=== PATIENT | female | born 1990 | race Caucasian/White ===

== ENCOUNTER 2021-06-22 15:49 | Emergency (ER) | payer BC, SELFPAY ==
[2021-06-22 15:50] VITALS: BP 122/66; PULSE 87; RESP 18; TEMP 36.7; O2SAT 99; BMI 28.1
--- NOTE | 2021-06-22 17:15 | RAD_ITS ---
STUDY: X-RAY - RIGHT FOOT CLINICAL: Female, 31 years old. pain TECHNIQUE: 3 view(s) of the foot. COMPARISON: None. FINDINGS: Normal talus, calcaneus, and tarsal bones. Normal visualized subtalar, talonavicular, calcaneocuboid, tarsal and tarsometatarsal articulations. Normal metatarsi. Normal metatarsophalangeal joint of the great toe. Normal tibial and fibular sesamoid bones. Normal interphalangeal joint of the great toe. Normal phalanges of the great toe. Normal second through fifth metatarsophalangeal joints. Normal interphalangeal joints and phalanges of the lesser toes. The soft tissue structures are unremarkable. RAD/Foot min 3 Views IMPRESSION: Normal x-ray examination of the foot. Electronically Signed: Dylan Morton MD at 17:38 EST Tel , Service support ,
--- NOTE | 2021-06-22 18:17 | ED.VIS.LOWEX ---
HPI History of Present Illness HPI Narrative: Patient presents with right foot injury that occurred yesterday. Patient states she was playing soccer. Patient states she was running and made a cut when she felt something crunch in her right foot. Patient states it is over the lateral aspect of the right foot. Patient states that later in the game she kicked the ball but is unsure if another player kicked the ball at the same time or if a accidentally kicked each other his feet. Patient states her pain is worse with weightbearing. Patient states it is a constant dull ache but is sharp with weightbearing. Patient denies any paresthesias or weakness. Patient denies any other injuries. Chief Complaint: Lower Extremity Injury Informant: patient Onset/Context/Timing Onset: Yesterday Context: Sudden Onset Timing: Continuous Quality of Pain: Sharp and Dull Location: Right foot Worsened by: Weightbearing Relieved by: Rest Associated Symptoms Associated Symptoms: Positive for Parasthesia; Negative for Weakness and Loss of Funtion PFSH PFSH Medical History no medical history Home Medications meloxicam 15 mg PO DAILY #10 tab 06/22/21 [Rx Last Taken Unknown] Allergy/AdvReac Type Severity Reaction Status Date / Time No Known Allergies Allergy Verified 06/22/21 16:47 Surgical History (Updated 06/22/21 @ 18:[address] Kali Harvey DO) H/O section History of arthroscopy of right shoulder Hx of laparoscopy Social History Smoking Status: Never smoker ROS ROS ED Constitutional Constitutional ED: Denies chills or fever(s) Eyes Eyes: Denies blurry vision or change in vision ENT ENT ED: Denies rhinorrhea or sore throat Cardiovascular Cardiovascular: Denies chest pain or palpitations Respiratory/Chest Respiratory/Chest: Denies cough or dyspnea Gastrointestinal Gastrointestinal: Denies nausea or vomiting Genitourinary Genitourinary ED: Denies dysuria or hematuria Musculoskeletal Musculoskeletal: Denies back pain or neck pain Integumentary Denies abscess or rash Neurologic Neurologic: Denies headache(s) or weakness Allergic/Immunologic Allergic/Immunologic ED: Denies mouth swelling or urticaria EXAM Physical Exam Const Vital Signs: 06/22/21 15:50 Temperature 98.1 F Temperature Source Temporal Pulse Rate 87 Respiratory Rate 18 Blood Pressure 122/66 H Blood Pressure Mean 84 Pulse Ox 99 Oxygen Delivery Method Room Air Positive well nourished and well developed General Appearance ED: well developed HEENT Reports moist mucous membranes Neck full ROM and supple Extremity Extremity Narrative: There is tenderness over the right fifth metatarsal. There is also tenderness over the first tarsometatarsal joint. There is no edema or ecchymosis. There is no bony crepitance or step-off. There is no obvious deformity noted. There is no tenderness over the medial or lateral malleoli. Pedal pulses are equal bilaterally. Sensation was intact to light touch in all digits. Capillary refill was less than 2 seconds in all digits. There is no calf tenderness. There is no proximal fibula tenderness. Neuro oriented x3, CN's II-XII intact bilaterally, moves all extremities and no sensory deficits noted Sensorium / Orientation: alert Motor Exam: strength 5/5 throughout MDM MDM MDM Narrative Medical decision making narrative: X-rays of the right foot were obtained. There are 3 views. On my interpretation, there is no acute fracture. There is no dislocation. There is no soft tissue swelling. Radiologist also interpreted the x-rays and agrees. Patient was given a postop shoe. Patient was instructed to ice and elevate the right foot. Patient was given a prescription for meloxicam. Patient was instructed to follow-up with her primary care physician in 5 to 7 days. Patient understood and was agreeable with the plan. All questions were answered. Radiography Diagnostic Testing: Clinical Impression(s) from Imaging Studies Foot X-Ray 06/22/21 17:15 IMPRESSION: Normal x-ray examination of the foot. Electronically Signed: Dylan Morton MD at 17:38 EST Tel , Service support , Discharge Plan Triage Chief Complaint: Lower Extremity Injury ED Provider: Kali Harvey Dx/Rx/DC Orders Clinical Impression: Right foot sprain Instructions: ED Foot Sprain Prescriptions: New meloxicam 15 mg tablet 15 mg PO DAILY Qty: 10 RF: 0 Primary Care Provider: Juanito Delcid Referrals: Juanito Delcid MD [Primary Care Provider] - 5-7 Days Disposition Disposition: Home, Self Care
== END 2021-06-22 18:33 | disposition home or self-care (01) ==
PROVIDERS: Emergency Provider Emergency Medicine; PCP Family Medicine
DX: S93.601A Unspecified sprain of right foot, initial encounter (principal); X58.XXXA Exposure to other specified factors, initial encounter; Y93.66 Activity, soccer
CPT/HCPCS: 73630; 99283

== ENCOUNTER 2021-08-08 16:19 | Outpatient (CLI) | payer BC, SELFPAY ==
[2021-08-08 18:18] LABS: T4 Free Direct 0.94 ng/dL (0.76-1.46); Thyroid Stim Hormone (TSH) 0.65 uIU/mL (0.358-3.74)
[2021-08-12 18:07] LABS: Thyroid Stim Immunoglob <0.10 IU/L (0.00-0.55)
[2021-08-12 20:20] LABS: Anti-Thyroglobulin AB < 1.0 IU/mL (0.0-0.9); Thyroglobulin, Serum Qt. 19.3 ng/mL (1.5-38.5); Thyroid Peroxidase AB < 8 IU/mL (0-34)
== END 2021-08-08 23:59 | disposition short-term general hospital (02) ==
LOC: MFPLAB 16:23
PROVIDERS: PCP Family Medicine; Referring Provider Family Medicine; Visit Provider Family Medicine
DX: E01.0 Iodine-deficiency related diffuse (endemic) goiter (principal)
CPT/HCPCS: 36415; 84432; 84439; 84443; 84445; 86376; 86800

== ENCOUNTER 2021-08-15 09:01 | Outpatient (CLI) | payer BC, SELFPAY ==
--- NOTE | 2021-08-15 09:05 | US_ITS ---
STUDY: THYROID ULTRASOUND REASON FOR EXAM: Female, 31 years old. THYROMEGALY TECHNIQUE: Ultrasound evaluation of the thyroid was performed with real-time and static nesbitt-scale imaging. COMPARISON: None. FINDINGS: RIGHT LOBE: The right lobe of the thyroid gland is slightly enlarged and measures 5.5 cm x 2.2 cm x 1.6 cm. There is a homogeneous echotexture. There are no demonstrated solid, cystic or complex lesions. LEFT LOBE: The left lobe of the thyroid gland is slightly enlarged and measures 5.3 cm x 2 cm x 1.4 cm. There is a homogeneous echotexture. There are no demonstrated solid, cystic or complex lesions. ISTHMUS: The isthmus measures 4 mm. The regional lymph nodes are normal. US/Thyroid IMPRESSION: Mild thyromegaly. No focal abnormality is seen. Electronically Signed: Yogi Olmos MD at 10:35 EST , Service support ,
== END 2021-08-15 23:59 | disposition short-term general hospital (02) ==
LOC: US 09:05
PROVIDERS: PCP Family Medicine; Referring Provider Family Medicine; Visit Provider Family Medicine
DX: E01.0 Iodine-deficiency related diffuse (endemic) goiter (principal)
CPT/HCPCS: 76536

== ENCOUNTER → 2022-02-19 | Outpatient (CLI) | payer OTHER, SELFPAY ==
--- NOTE | 2022-02-19 12:22 | RAD_ITS ---
CLINICAL HISTORY: Female, 31 years old. Right shoulder pain following injury. PROCEDURE: ARTHROGRAM - RIGHT SHOULDER CONSENT: The procedure as well as benefits and possible complications were explained to the patient. Informed consent was obtained. FLUOROSCOPY TIME (if supplied): (1 minute and 40 seconds) minutes/seconds Injection Information: 10 cc of dilute MRI contrast Number of images obtained: 5 TECHNIQUE: (All elements of maximal sterile barrier technique followed, including US elements as applicable) The patient was in the supine position. The overlying skin was prepped and draped in the usual sterile fashion. Following local anesthetic application and under direct fluoroscopic guidance, a 22-gauge spinal needle was placed into the shoulder joint. 2 cc of ISOVUE-300 was injected for confirmation. Following this, 10 cc of dilute MRI contrast was injected. The patient tolerated the procedure well. RAD/Arthrogram Shoulder w/ MRI IMPRESSION: Successful right shoulder arthrogram with injection of 10 cc of dilute MRI contrast. The patient tolerated the procedure well. Electronically Signed: Yogi Olmos MD at 13:53 EDT ,
[2022-02-19] MEDS: Lidocaine 2% (5ml sdv) 5 ML VIAL.MPF INFILT (12:56)
[2022-02-19] MEDS: Gadoterate Meglumine Diluted 10 ML, Iopamidol 5 ML, Lidocaine 1% (20 ml mdv) 5 ML, Epin... INTRAARTIC (12:58)
[2022-02-19] MEDS: Iopamidol 10 ML in Syringe 1 EACH 600 ML INTRAARTIC (12:58)
--- NOTE | 2022-02-19 13:40 | MRI_ITS ---
EXAM: MR LEFT UPPER EXTREMITY ARTHROGRAM WITH INTRAVENOUS CONTRAST, SHOULDER CLINICAL INDICATION: L SHOULDER INSTABILITY TECHNIQUE: Multiplanar and multisequence MR images of the left shoulder following injection of dilute gadolinium into the joint space. This report was created using [employer] report Trueffect technology. CONTRAST: 10cc of a MR arthrogram compound solution containing Dotarem was injected by Dr. Olmos under fluoro. COMPARISON: None. FINDINGS: TENDONS: SUPRASPINATUS: Moderate tendinosis of the supraspinatus tendon. Mild/moderate tendinosis of the infraspinatus tendon. No tendon tearing. INFRASPINATUS: See above. SUBSCAPULARIS: Unremarkable. Intact. TERES MINOR: Unremarkable. Intact. BICEPS BRACHII, LONG HEAD: Intact long head of biceps tendon which is normal in position. The extra-articular biceps tendon is in the bicipital groove. LIGAMENTS: GLENOHUMERAL: Unremarkable. Intact. MUSCLES: Muscles are normal. No rotator cuff muscle atrophy. FLUID: Small amount of fluid in the subacromial/subdeltoid bursa may represent bursitis in the appropriate clinical setting. CARTILAGE: No focal cartilage defects. GLENOID LABRUM: No labral tearing. BONES/JOINTS: Type II acromion with curved undersurface. No subacromial enthesophyte. No significant arthritic changes involving the acromioclavicular joint. No fracture. No abnormal bone marrow signal. OTHER SOFT TISSUES: Unremarkable. No rotator interval edema. OTHER FINDINGS: No concerning marrow signal alteration. Neurovascular structures are unremarkable. MRI/Upper Ext Jt Only W/Contrast IMPRESSION: 1. Small amount of fluid in the subacromial/subdeltoid bursa may represent bursitis in the appropriate clinical setting. 2. No significant rotator cuff or labral tearing. 3. No other significant internal derangement. Electronically Signed: Emerson Mtz MD at 23:37 EDT ,
== END | disposition home or self-care (01) ==
PROVIDERS: PCP Family Medicine
DX: M25.512 Pain in left shoulder (principal)
CPT/HCPCS: 23350; 73222; 77002; Q9967

== ENCOUNTER → 2024-01-25 | Outpatient (CLI) | payer OTHER, SELFPAY ==
--- NOTE | 2024-01-25 10:40 | RAD_ITS ---
STUDY: X-RAY - RIGHT ANKLE REASON FOR EXAM: Female, 33 years old. Injury TECHNIQUE: 3 view(s) of the ankle. COMPARISON: None. FINDINGS: Normal visualized distal tibia and fibula. Normal medial and lateral malleoli. Normal tibiotalar articulation and ankle mortise. Normal visualized talus and calcaneus. The visualized subtalar, talonavicular, calcaneocuboid and tarsal articulations are normal. The soft tissue structures are unremarkable. RAD/Ankle min 3 Views IMPRESSION: Normal x-ray examination of the ankle. Electronically Signed: Yogi Olmos MD at 10:59 EDT ,
== END | disposition home or self-care (01) ==
PROVIDERS: PCP Family Medicine; Referring Provider Physician Assistant; Visit Provider Physician Assistant
DX: S99.911A Unspecified injury of right ankle, initial encounter (principal); X58.XXXA Exposure to other specified factors, initial encounter
CPT/HCPCS: 73610